=== PATIENT | male | born 1980 | race Caucasian/White ===

== ENCOUNTER → 2016-12-29 | Outpatient (CLI) | payer BC ==
--- NOTE | 2016-12-29 14:23 | DI ---
Indication: ITS.REASON: R10.9 ABD PAIN PROCEDURE: CT ABD/PELVIS W/O CONTRAST: Encounter: Initial Comparison: None Technique: Axial CT images were performed through the abdomen and pelvis without intravenous contrast. Coronal and sagittal two-dimensional reformats. Automated Exposure Control and Iterative Reconstruction dose reducing techniques were utilized. Findings: The lung bases are clear. The liver shows no contour deforming mass or obvious bile duct dilatation. The gallbladder, spleen, pancreas and adrenal glands are within normal limits. The kidneys are normal. No renal or ureteral stone disease. No abdominal or pelvic lymphadenopathy. The bladder is normal. Prostate and rectum are within normal limits. No free fluid. No evidence of a bowel obstruction. Bone windows are unremarkable. Impression: No acute disease process seen in the abdomen or pelvis. .
== END ==
LOC: IMA 12:04
PROVIDERS: ATTEND Nurse Practitioner
DX: R10.33 Periumbilical pain (principal)

== ENCOUNTER 2017-01-16 14:25 | Emergency (ER) | payer BC ==
[~2017-01-16] VITALS: Ht 193 cm; Wt 146.6 kg
[2017-01-16 14:27] VITALS: Ht 193 cm; Wt 146.6 kg
[2017-01-16] MEDS ORDERED: NORMAL SALINE 1,000 ML IV ONE (14:52)
--- NOTE | 2017-01-16 14:55 | NUR ---
IVL ATTEMPTED IV LOCK X 2 WITHOUT SUCCESS. GOT BEAR YANCEY RN TO START IV.
[2017-01-16] MEDS ORDERED: KETOROLAC 30mg/ml INJECTION IV ONE (15:00)
[2017-01-16] MEDS ORDERED: ORPHENADRINE 60mg/2ml INJECTION IV ONE (15:00)
[2017-01-16] MEDS ORDERED: steroid cream TOP (15:04)
[2017-01-16] MEDS ORDERED: ACET-2890 PO (15:04)
--- NOTE | 2017-01-16 15:10 | NUR ---
FLUIDS AND MEDS IV FLUID BOLUS STARTED. TORADOL AND NORFLEX GIVEN FOR PAIN AND SPASMS.
--- NOTE | 2017-01-16 15:12 | NUR ---
CT PT. TO CT PER CART.
[2017-01-16 15:13] LABS: HCT - HEMATOCRIT 40.2 % (41-53); HGB - HEMOGLOBIN 14.2 GM/DL (13.5-17.5); MEAN CORPUSCULAR HGB 31.9 UUG (26-34); MEAN CORPUSCULAR HGB CONC(MCHC 35.3 GM/DL (31-37); MEAN CORPUSCULAR VOLUME 90.3 UM3 (80-100); MEAN PLATELET VOLUME 9.2 UM3 (9.4-12.4); RED BLOOD COUNT 4.45 M/MM3 (4.50-5.90); WBC - WHITE BLOOD COUNT 11.3 T/MM3 (4.5-11.0)
[2017-01-16 15:27] LABS: ALBUMIN 4.7 G/DL (3.5-5.0); ALBUMIN/GLOBULIN RATIO 1.9 RATIO (1.1-2.2); ALKALINE PHOSPHATASE 88 U/L (38-126); ALT (SGPT) 35 U/L (21-72); ANION GAP 14 MEQ/L (5-15); AST (SGOT) 32 U/L (17-59); BUN/CREATININE RATIO 13 RATIO (6-26); CALCIUM 10.3 MG/DL (8.4-10.2); CHLORIDE 106 MEQ/L (98-107); CO2 - CARBON DIOXIDE 23 MEQ/L (22-30); GLOMERULAR FILTRATION RATE 85; GLUCOSE 96 MG/DL (75-110); SODIUM 143 MEQ/L (134-144); TOTAL PROTEIN 7.2 G/DL (6.3-8.2)
--- NOTE | 2017-01-16 15:28 | NUR ---
CT PT. RETURNS FROM CT.
[2017-01-16 15:30] LABS: BAND NEUTROPHILS # 0.6 T/MM3; LYMPHOCYTES # (MANUAL) 0.5 T/MM3 (1-4.8); MONOCYTES # (MANUAL) 0.3 T/MM3 (0-0.8); NEUTROPHILS #(MANUAL)-ABSOLUTE 9.9 T/MM3 (1.8-7.7)
--- NOTE | 2017-01-16 15:34 | ERPDOC ---
Departure Disposition Decision Date: January 16, 2017 Disposition Decision Time: 16:30 Disposition: 02 TO [facility] Impression Impression Impression: Primary Impression: Lumbar compression fracture Encounter type: initial encounter Fracture type: closed Qualified Codes: S32.000A - Wedge compression fracture of unspecified lumbar vertebra, initial encounter for closed fracture Additional Impression: Fall from height of greater than 3 feet Severity: Moderate Condition: Improved Seen By: Physician only Referrals: SHERIDAN ROCHE MD (Family) Problems/Meds/Labs Reviewed?: Yes Medications reviewed and manag: Yes Follow up care ordered?: Yes Mental Status: Alert, Oriented HPI - Fall/Injury General Chief Complaint: Fall Stated Complaint: FALL 9FT Time Seen by Provider: 14:41 Source: patient Exam Limitations: no limitations HPI - Fall/Injury Initial Comments 36yo man presents to the ER today with midback pain. Pt was up on his roof earlier today; he lost his concrete block mason and slid down the roof on his abdomen. Pt fell off the roof onto his back on the deck below. Pt felt and heard a pop when he hit the deck; pt took tylenol and tried to wait out the pain. Pts pain did not improve, so he came to the ER. Occurred At: home Onset: Rapid Duration: 4-6 hrs Pain Scale: Now & Worst: 8/10 Severity: severe Injuries/Pain Location: back 1 - Pain with radiation Context: lost balance Loss of Consciousness: no loss of consciousness Modifying Factors: IMPROVES WITH: cold therapy, immobilization, WORSE WITH: jarring, movement Associated Symptoms: muscle spasms Hx of Similar Symptoms: No Allergies: Coded Allergies: Penicillins (Verified Allergy, Unknown, 01/16/17) Past History Past Medical History Integumentary: eczema Surgical History General: tonsils Vaccines Hx Tetanus, Diptheria, Pertuss: Yes (WITHIN 10 YRS.) Review of Systems Musculoskeletal General: pain, see HPI All other Systems All Other Systems: Reviewed and Negative Physical Exam General General Nourishment: well nourished, well developed, appears stated age, no acute distress, adult, obese General Body Habitus: well groomed Vitals and Pain First Documented Vital Signs Date Time Temp Pulse Resp B/P Pulse Ox O2 Delivery O2 Flow Rate FiO2 01/16/17 14:27 98.0 79 28 143/64 100 Room Air Weight: Kilograms: 146.600 Height (feet): 6 Height (inches): 4.00 Triage Pain Scale: RN VS reviewed by Provider: Yes Respiratory (brief) Respiratory: FOUND: clear all taylor, equal bilaterally, symmetrical, NOT FOUND : rales, wheezes Cardiovascular (brief) Cardiac: FOUND: regular rate, regular rhythm, NOT FOUND: click, gallop, murmur , pedal edema, peripheral edema, rub Capillary Refill: <2 sec Pulses: all distal extremities, equal, strong Abdomen (brief) Abdominal Brief: FOUND: bowel normo active x4, soft, NOT FOUND: distended, hepatosplenomegaly, pulsatile mass, tender Musculoskeletal (brief) Musculoskeletal Brief: FOUND: spasm (T/L paraspinal), NOT FOUND: deformity, loss of motion, tenderness Neurologic (brief) Neurological Brief: FOUND: CN w/o gross def to obs, DTR 2/4 all extremities, gait w/o gross def to obs, motor-no gross deficits, sensory-no gross deficits, NOT FOUND: Babinski Comments Pain with motion of any part of his spine Psychiatric (brief) Psychiatric Brief: FOUND: alert, normal affect, oriented Supervisory Exam Head: atraumatic Eyes: PERRL Nares: no exudate Neck: trachea midline Skin: pink, dry Differential Diagnoses Considering: Abrasion, Concussion, Contusion, Dislocation, Fracture, Sprain, Strain Progress Results/Orders Orders Procedure Category Date Status Time Iv Lock (Ed Only) EDM 01/16/17 Transmitted 14:52 Cbc W/Auto LAB 01/16/17 Complete Diff-Reflex Manual 14:52 Cmp - Comprehensive LAB 01/16/17 Complete Metabolic 14:52 Normal Saline (Normal PHA 01/16/17 Complete Saline Iv) 14:52 Ketorolac (Toradol) PHA 01/16/17 Complete 15:00 Orphenadrine (Norflex) PHA 01/16/17 Complete 15:00 Ct Thoracic Spine W/O CT 01/16/17 Resulted Contrast 14:52 Ct Lumbar Spine W/O CT 01/16/17 Resulted Contrast 14:52 Ct Pelvis W/O Contrast CT 01/16/17 Resulted 14:52 Morphine Sulfate PHA 01/16/17 Complete (Morphine) 16:15 Hydromorphone PHA 01/16/17 Complete (Dilaudid) 16:45 Lab Results Laboratory Tests Test 01/16/17 15:10 White Blood Count 11.3T/MM3 Red Blood Count 4.45M/MM3 Hemoglobin 14.2GM/DL Hematocrit 40.2% Mean Corpuscular Volume 90.3UM3 Mean Corpuscular Hemoglobin 31.9UUG Mean Corpuscular Hemoglobin Concent 35.3GM/DL RDW Standard Deviation 41.3FL Platelet Count 270T/MM3 Mean Platelet Volume 9.2UM3 Immature Granulocyte % (Auto) % Neutrophils (%) (Auto) % Lymphocytes (%) (Auto) % Monocytes (%) (Auto) % Eosinophils (%) (Auto) % Basophils (%) (Auto) % Absolute Immature Granulocyte (auto T/MM3 Absolute Neutrophils (auto) T/MM3 Absolute Lymphocytes (auto) T/MM3 Absolute Monocytes (auto) T/MM3 Absolute Eosinophils (auto) T/MM3 Absolute Basophils (auto) T/MM3 Neutrophils % (Manual) 88.0% Band Neutrophils % 5.0% Lymphocytes % (Manual) 4.0% Monocytes % (Manual) 3.0% Absolute Neutrophils (Manual) 9.9T/MM3 Band Neutrophils # 0.6T/MM3 Lymphocytes # (Manual) 0.5T/MM3 Monocytes # (Manual) 0.3T/MM3 Red Cell Morphology Comment Normal Turbidity < 20 Sodium Level 143MEQ/L Potassium Level 4.0MEQ/L Chloride Level 106MEQ/L Carbon Dioxide Level 23MEQ/L Anion Gap 14MEQ/L Blood Urea Nitrogen 13.0MG/DL Creatinine 1.0MG/DL Glomerular Filtration Rate Calc 85 BUN/Creatinine Ratio 13RATIO Glucose Level 96MG/DL Calculated Osmolality 275MOSM/KG Calcium Level 10.3MG/DL Total Bilirubin 1.20MG/DL Icterus Index < 2 Aspartate Amino Transf (AST/SGOT) 32U/L Alanine Aminotransferase (ALT/SGPT) 35U/L Alkaline Phosphatase 88U/L Total Protein 7.2G/DL Albumin 4.7G/DL Globulin 2.5G/DL Albumin/Globulin Ratio 1.9RATIO Chemistry Specimen Hemolysis < 15 Medications Current ED Medications Sodium Chloride (Normal Saline IV) 1,000 ml @ 0 mls/hr Q0M ONCE IV Last administered on 01/16/17 15:06; Start 01/16/17 at 14:52; Stop 01/16/17 at 14:54; Status DC Ketorolac Tromethamine (Toradol) 30 mg O ONCE IV Last administered on 15:07; Start 01/16/17 at 15:00; Stop 01/16/17 at 15:01; Status DC Orphenadrine Citrate (Norflex) 60 mg O ONCE IV Last administered on 01/16/17 15:10; Start 01/16/17 at 15:00; Stop 01/16/17 at 15:01; Status DC Morphine Sulfate (Morphine) 2 mg O ONCE IV Last administered on 01/16/17 16:11 ; Start 01/16/17 at 16:15; Stop 01/16/17 at 16:16; Status DC Hydromorphone HCl (Dilaudid) 0.5 mg O ONCE IV Last administered on 01/16/17 16 :50; Start 01/16/17 at 16:45; Stop 01/16/17 at 16:46; Status DC Progress Progress Discussed dx, prognosis, and likely recommendation of txfr to trauma center with pt. Pt voiced understanding; prefers [facility] if he has to be transferred. Consult/PCP Consult/PCP : Physician Contacted: Dr. Romeo ([facility]) Time Called: 16:25 Time of first response: 16:28 Type of discussion: Phone Consult/PCP Discussion Details Will accept pt for txfr to [facility]. CT CT #1: CT: Other (L spine) Interpretation: Abnormal (L1 comminuted fx with retropulsion of superior endplate fragment; no canal stenosis), Discussed w/ Radiologist, Reviewed Written Report CT #2: CT: Other (Thoracic spine) Interpretation: Normal, Reviewed Written Report CT #3: CT: Other (Pelvic) Interpretation: Normal, Reviewed Written Report MISSAEL AGUILAR DO January 16, 2017 15:34
--- NOTE | 2017-01-16 16:11 | NUR ---
MS PT. CONTINUES TO HAVE PAIN HE RATES A 5 AND MS GIVEN IV.
[2017-01-16] MEDS ORDERED: MORPHINE SULFATE 2 MG SYRINGE IV ONE (16:15)
--- NOTE | 2017-01-16 16:16 | NUR ---
INTAKE PT. ATE PANCAKES ON A STICK AT 0900, HAD COKE AND WATER AT NOON AND HAD SOME WATER WITH TYLENOL AT 1300.
--- NOTE | 2017-01-16 16:36 | NUR ---
REPORT REPORT GIVEN TO [facility].
--- NOTE | 2017-01-16 16:40 | NUR ---
[facility] CALLED FOR AMBULANCE TO TRANSFER PT.
[2017-01-16] MEDS ORDERED: HYDROMORPHONE 2mg/ml INJECTION IV ONE (16:45)
--- NOTE | 2017-01-16 16:50 | NUR ---
DILAUDID DILAUDID GIVEN IV FOR BACK PAIN A 4. AMBULANCE ARRIVES I AM GIVING MEDICATION.
--- NOTE | 2017-01-16 16:54 | NUR ---
VALUABLES PTS. KEYS, WALLET AND GLASSES GIVEN TO ALAN PTS. FATHER IN LAW. CELL PHONE WENT WITH PATIENT.
--- NOTE | 2017-01-16 16:55 | NUR ---
TRANSFER PT. LEFT ED PER [facility] TO GO TO [facility]. IV LOCK CONTINUES.
[2017-01-16 17:45] VITALS: BP 126/57; PULSE 91; RESP 18; TEMP 98; O2SAT 100
--- NOTE | 2017-01-17 09:27 | DI ---
Indication: ITS.REASON: Fall from height PROCEDURE: CT LUMBAR SPINE W/O CONTRAST: Encounter: Initial Comparison: None Findings: There is an acute appearing compression fracture of L1 with approximately 30% loss of vertebral body height. There is slight retropulsion of the superior endplate of a few millimeters. No subluxation. Impression: Acute appearing L1 compression fracture of the superior endplate with 30% loss of vertebral body height and slight retropulsion of the superior endplate. .
--- NOTE | 2017-01-17 09:29 | DI ---
Indication: ITS.REASON: Fall from height PROCEDURE: CT THORACIC SPINE W/O CONTRAST: Encounter: Initial Comparison: CT lumbar spine performed same date Findings: There is mild degenerative disc disease of the mid to lower thoracic spine. There is a compression fracture of the superior endplate of L1. There is no definite compression fracture of the thoracic spine. The included portions of the ribs are clear. No pneumothorax or pleural effusion. No pulmonary contusion. Impression: Acute appearing L1 compression fracture. No definite bony destructive process of the thoracic spine. .
--- NOTE | 2017-01-17 09:31 | DI ---
Indication: ITS.REASON: Fall from height PROCEDURE: CT PELVIS W/O CONTRAST: Encounter: Initial Comparison: None Findings: There is mild bilateral sacroiliitis. The mineralization appears well-preserved. There is no definite displaced fracture or bony destructive process. No soft tissue mass or abnormal calcification. The urinary bladder is not distended. The prostate gland is not enlarged. No adenopathy. No significant distal colonic diverticulosis or evidence of diverticulitis. Impression: No definite displaced fracture or bony destructive process. .
== END 2017-01-16 16:55 | disposition short-term general hospital (02) ==
LOC: ED 14:25
DX: S32.010A Wedge compression fracture of first lumbar vertebra, initial encounter for closed fracture (principal); W13.2XXA Fall from, out of or through roof, initial encounter; Y93.89 Activity, other specified; Y92.018 Other place in single-family (private) house as the place of occurrence of the external cause; Y99.8 Other external cause status
CPT/HCPCS: 72128; 72131; 72192; 80053; 85025; 96374; 96375; 99285; J1170; J1885; J2360; J7030